=== PATIENT | female | born 1995 | race Caucasian/White ===

== ENCOUNTER 2023-03-18 01:08 | Emergency (ER) | payer SELFPAY ==
[~2023-03-18] VITALS: Ht 167.6 cm; Wt 52.2 kg
[2023-03-18] MEDS ORDERED: ONDANSETRON HCL/PF 4 MG/2 ML VIAL ONE (01:25)
[2023-03-18] MEDS ORDERED: ONDANSETRON HCL/PF 4 MG/2 ML VIAL IM ONE (01:30)
[2023-03-18 02:35] VITALS: BP 114/74; TEMP 98.2; O2SAT 97
== END 2023-03-18 02:35 | disposition home or self-care (01) ==
LOC: ER 01:17
DX: F10.129 Alcohol abuse with intoxication, unspecified (principal); E11.9 Type 2 diabetes mellitus without complications; Y90.9 Presence of alcohol in blood, level not specified
CPT/HCPCS: 99283; 96374; 82962; J2405